=== PATIENT | female | born 1995 | race Two or more races ===

== ENCOUNTER 2024-12-09 10:21 | Emergency (ER) | payer OTHER ==
[~2024-12-09] VITALS: Ht 162.6 cm; Wt 76.2 kg
[2024-12-09 11:39] LABS: HEMOGLOBIN 12.3 g/dL (12.0-15.00); MEAN CELL VOLUME 82.2 fL (80.00-100.00); PLATELET COUNT 319 K/uL (150-450); RED BLOOD COUNT 4.38 M/uL (4.00-6.00); RED CELL DISTRIBUTION WIDTH 13.3 % (11.5-14.5)
== END 2024-12-09 14:48 | disposition home or self-care (01) ==
LOC: ER 10:21
PROVIDERS: General Practice
DX: O26.891 Other specified pregnancy related conditions, first trimester (principal); Z3A.12 12 weeks gestation of pregnancy; R10.2 Pelvic and perineal pain

== ENCOUNTER 2024-12-23 13:42 | Emergency (ER) | payer OTHER ==
[~2024-12-23] VITALS: Ht 162.6 cm; Wt 75.3 kg
[2024-12-23 15:32] LABS: HEMATOCRIT 34.5 % (34.1-44.9); HEMOGLOBIN 11.3 g/dL (11.2-15.7); MEAN CORPUSCULAR HEMOGLOBIN 26.8 pg (25.6-32.2); PLATELET COUNT 321 K/uL (163-369); RED BLOOD COUNT 4.22 M/uL (3.93-5.22); RED CELL DISTRIBUTION WIDTH 12.8 % (11.6-14.4)
[2024-12-23 15:33] LABS: BASO % 0.4 % (0.1-1.2); EOS % 2.2 % (0.7-7.0); LYMPH # 2.03 (1.18-3.74); LYMPH % 21.9 % (19.3-53.1); MONO # 0.43 (0.24-0.82); MONO % 4.6 % (4.7-12.5); NEUT # 6.53 (1.56-6.13); NEUT % 70.7 % (34.0-71.1)
[2024-12-23 15:41] LABS: PH,URINE 5.5 (5.0-8.0); URINE APPEARANCE Cloudy; URINE BILIRRUBIN Negative (NEGATIVE); URINE BLOOD Moderate; URINE COLOR Yellow; URINE GLUCOSE Negative (NEGATIVE); URINE LEUKOCYTE Small; URINE NITRATE Negative; URINE PROTEIN Trace (NEGATIVE)
[2024-12-23 15:45] LABS: URINE BACTERIA 4103.9 uL (0.0-1933); URINE EPITHELIAL CELLS 47.3 uL (0.0-38.8); URINE RBC 18.4 uL (0.0-20.8); URINE WBC 200.5 uL (0.0-23.2)
[2024-12-23 16:00] LABS: URINE CAST 0.88 uL (0.0-1.40); URINE KETONE 80 (NEGATIVE)
== END 2024-12-23 19:15 | disposition home or self-care (01) ==
LOC: ER 14:10
PROVIDERS: General Practice
DX: O26.891 Other specified pregnancy related conditions, first trimester (principal); R10.2 Pelvic and perineal pain; Z3A.13 13 weeks gestation of pregnancy

== ENCOUNTER → 2025-02-02 11:30 | Outpatient (CLI) | payer OTHER | END | disposition home or self-care (01) | LOC: PRENATAL 11:30 | PROVIDERS: ATTEND Obstetrics & Gynecology Maternal & Fetal Medicine | DX: O44.00 Complete placenta previa NOS or without hemorrhage, unspecified trimester (principal); Z3A.19 19 weeks gestation of pregnancy ==

== ENCOUNTER 2025-06-22 09:46 | Inpatient (IN) | payer OTHER ==
[~2025-06-22] VITALS: Ht 162.6 cm; Wt 85.3 kg
[2025-06-22] VITALS (7 sets, daily range): BP systolic 128–187; BP diastolic 80–114
[~2025-06-22 09:46] MED LIST: PRENATABS RX T1 EACH PO
[2025-06-22] MEDS ORDERED: IRON236 MG (09:48)
[2025-06-22] MEDS ORDERED: RINGERS SOLUTION,LACTATED 1,000 ML IV SCH (10:00)
[2025-06-22 10:14] LABS: BASO % 0.5 % (0.1-1.2); EOS # 0.17 (0.04-0.54); EOS % 1.8 % (0.7-7.0); LYMPH # 2.12 (1.18-3.74); LYMPH % 22.0 % (19.3-53.1); MEAN PLATELET VOLUME 10.30 fl (9.4-12.4); MONO # 0.63 (0.24-0.82); MONO % 6.5 % (4.7-12.5); NEUT # 6.61 (1.56-6.13); NEUT % 68.5 % (34.0-71.1); RED CELL DISTRIBUTION WIDTH 13.2 % (11.6-14.4)
[2025-06-22 10:20] LABS: URINE APPEARANCE Cloudy; URINE BILIRRUBIN Negative (NEGATIVE); URINE BLOOD Small; URINE COLOR Dark Yellow; URINE GLUCOSE Negative (NEGATIVE); URINE KETONE Trace (NEGATIVE); URINE LEUKOCYTE Large; URINE NITRATE Negative; URINE PROTEIN 30 (NEGATIVE); URINE UROBILINOGEN 1.0 E.U./dl
[2025-06-22 10:32] LABS: URINE BACTERIA 3241.1 uL (0.0-1933); URINE RBC 21.1 uL (0.0-20.8); URINE WBC 910.7 uL (0.0-23.2)
[2025-06-22 10:48] LABS: TYPE CELLS SQUAMOUS; URINE CAST 1.02 uL (0.0-1.40); URINE CRYSTALS FEW /HPF; URINE EPITHELIAL CELLS > 201.7 uL (0.0-38.8)
[2025-06-22 10:49] LABS: INR < 0.93
[2025-06-22 11:10] LABS: ALT/SGPT 16.0 U/L (12-78); AST/SGOT 16.0 U/L (15-37); BILIRUBIN TOTAL 0.19 mg/dL (0.3-1.2); BUN CREA RATIO 18.0 (7.0-25.0); CREATININE SERUM 0.56 mg/dL (0.55-1.02); GFR 128.9; GLOBULINA 3.2 G/DL (2.4-3.5); GLUCOSE FASTING 100.0 mg/dL (65-100); OSMOLALITY SERUM 279.0 MOSM/KG (275-295)
[2025-06-22] MEDS ORDERED: OXYTOCIN 20 UNITS/500ML RL PIGGYBAG IV ONE (12:47)
[2025-06-22] MEDS ORDERED: OXYTOCIN 500 ML IV SCH (13:00)
[2025-06-22] MEDS ORDERED: MORPHINE SULFATE 4 MG/ML CARTRIDGE IV ONE (18:00)
[2025-06-22] MEDS ORDERED: ERYTHROMYCIN BASE OPHT 1GM EACH TUBE OP ONE (18:41)
[2025-06-22] MEDS ORDERED: CHLORHEXIDINE GLUCONATE 120 ML BOTTLE TOP ONE (18:42)
[2025-06-22] MEDS ORDERED: OXYTOCIN 20 UNITS/1000ML RL PIGGYBAG IV ONE (18:42)
[2025-06-22] MEDS ORDERED: LIDOCAINE HCL 1% 10ML VIAL ONE (18:42)
[2025-06-22] MEDS ORDERED: OXYTOCIN 10 UNITS/ML VIAL ONE (18:43)
[2025-06-22] MEDS ORDERED: CARBOPROST TROMETHAMINE 250 MCG/ML AMPUL IM ONE (21:36)
[2025-06-22] MEDS ORDERED: CHLORHEXIDINE GLUCONATE 120 ML BOTTLE TP SCH (22:30)
[2025-06-22] MEDS ORDERED: OXYTOCIN 10 UNITS/ML VIAL IM STA (22:30)
[2025-06-22] MEDS ORDERED: OXYTOCIN 1,000 ML IV SCH (22:30)
[2025-06-22] MEDS ORDERED: LABETALOL HCL 100 MG/20 ML ML ONE (22:47)
[2025-06-22] MEDS ORDERED: LABETALOL HCL 100 MG/20 ML ML IV PUSH ONE (23:15)
[2025-06-23 00:52] VITALS: BP 149/90
[2025-06-23 04:03] LABS: BASO % 0.2 % (0.1-1.2); EOS # 0.01 (0.04-0.54); EOS % 0.0 % (0.7-7.0); LYMPH # 1.25 (1.18-3.74); LYMPH % 4.8 % (19.3-53.1); MEAN PLATELET VOLUME 10.60 fl (9.4-12.4); MONO # 1.11 (0.24-0.82); MONO % 4.3 % (4.7-12.5); NEUT # 23.36 (1.56-6.13); NEUT % 90.0 % (34.0-71.1); RED CELL DISTRIBUTION WIDTH 13.0 % (11.6-14.4)
[2025-06-23 07:30] VITALS: BP 130/80
[2025-06-23 22:13] VITALS: BP 143/85
[2025-06-24 01:23] VITALS: BP 140/80
[2025-06-24 08:00] VITALS: BP 130/86
[2025-06-24 16:37] VITALS: BP 140/70
[2025-06-24] MEDS ORDERED: MYSOLINE250 MG PO (16:44)
[2025-06-24] MEDS ORDERED: COLACE100 MG PO (16:44)
[2025-06-24] MEDS ORDERED: PRENATAL TABLE1 EAC1 PO (16:44)
[2025-06-24] MEDS ORDERED: IBUPROFEN800 MG PO (16:44)
== END 2025-06-24 17:38 | disposition home or self-care (01) | DRG 807 ==
LOC: LDR 09:46 → OB/GYN 22:22
PROVIDERS: ADMIT Obstetrics & Gynecology; ATTEND Obstetrics & Gynecology
PROC: 10E0XZZ Delivery of Products of Conception, External Approach (ICD-10-PCS; principal; 2025-06-22)
PROC: 0KQM0ZZ Repair Perineum Muscle, Open Approach (ICD-10-PCS; 2025-06-22)
PROC: 4A1HXCZ Monitoring of Products of Conception, Cardiac Rate, External Approach (ICD-10-PCS; 2025-06-22)
DX: O70.1 Second degree perineal laceration during delivery (principal); O13.4 Gestational [pregnancy-induced] hypertension without significant proteinuria, complicating childbirth; Z37.0 Single live birth; Z3A.39 39 weeks gestation of pregnancy